=== PATIENT | female | born 1990 | race Caucasian/White ===

== ENCOUNTER → 2022-07-11 | Outpatient (CLI) | payer BC, SELFPAY ==
[2022-07-11 16:09] LABS: Absolute Lymphocyte Count 2.34 X10^3/uL (0.83-4.51); Absolute Neutrophil Count 7.4 X10^3/uL (2.0-7.7); Basophil# 0.09 X10^3/uL; Basophil% 0.8 % (0-1); Eosinophil# 0.14 X10^3/uL; Eosinophils% 1.2 % (0-5); Hemoglobin 13.6 g/dL (12.0-15.0); Lymphocyte # 2.34 X10^3/ul (0.83-4.51); Lymphocyte % 20.6 % (19-41); Mean Corp Hgb Conc 33.2 g/dL (32-36); Mean Corpuscular Volume 96.5 fL (81-99); Mean Platelet Vol. 11.4 fl (6.2-12.0); Monocyte# 1.32 X10^3/uL; Monocyte% 11.6 % (0-10); NRBC Flagged by Analyzer 0 % (0-5); Neutrophil # 7.41 X10^3/uL (2.7-7.7); Neutrophil % 65.2 % (47-70); Platelet Count 264 K/mm3 (150-450); RBC Distribution Width CV 12.2 % (11.6-14.6); RBC Distribution Width SD 43.5 fl (35.1-43.9); Red Blood Count 4.25 M/mm3 (4.2-5.4); White Blood Count 11.4 K/mm3 (4.4-11.0)
[2022-07-11 16:34] LABS: NATERA MAILED SPECIMEN
[2022-07-11 17:41] LABS: HIV - WCH Non-Reactive (Nonreactive); Hepatitis B Surface Antigen Non-Reactive (Nonreactive); Hepatitis C Antibody Non-Reactive (Nonreactive); Rubella IgG Reactive (Nonreactive); Syphilis Antibodies Non-reactive
[2022-07-14 07:06] LABS: Chlamydia By Nucleic Acid AMP Negative (Negative)
[2022-07-14 11:21] LABS: Gonococcus By Nucleic Acid AMP Negative (Negative)
[2022-07-18 21:15] LABS: HPV APTIMA, High Risk Negative (Negative)
== END | disposition home or self-care (01) ==
PROVIDERS: Referring Provider Obstetrics & Gynecology; Visit Provider Obstetrics & Gynecology
DX: O09.90 Supervision of high risk pregnancy, unspecified, unspecified trimester (principal)
CPT/HCPCS: 36415; 85025; 86703; 86762; 86780; 86803; 86850; 86900; 86901; 87086; 87340; 87491; 87591; 87624; 88175; G0145

== ENCOUNTER → 2022-11-01 | Outpatient (CLI) | payer BC, SELFPAY ==
[2022-11-01 10:20] LABS: Absolute Lymphocyte Count 2.05 X10^3/uL (0.83-4.51); Absolute Neutrophil Count 9.5 X10^3/uL (2.0-7.7); Basophil# 0.06 X10^3/uL; Basophil% 0.5 % (0-1); Eosinophil# 0.09 X10^3/uL; Eosinophils% 0.7 % (0-5); Hematocrit 33.2 % (37-47); Hemoglobin 11.3 g/dL (12.0-15.0); Lymphocyte # 2.05 X10^3/ul (0.83-4.51); Lymphocyte % 15.8 % (19-41); Mean Corpuscular Volume 97.1 fL (81-99); Monocyte# 1.08 X10^3/uL; Monocyte% 8.3 % (0-10); NRBC Flagged by Analyzer 0 % (0-5); Neutrophil # 9.48 X10^3/uL (2.7-7.7); Neutrophil % 73.3 % (47-70); Platelet Count 289 K/mm3 (150-450); RBC Distribution Width CV 12.5 % (11.6-14.6); Red Blood Count 3.42 M/mm3 (4.2-5.4); White Blood Count 12.9 K/mm3 (4.4-11.0)
[2022-11-01 10:48] LABS: Glucose Challenge Gest 1H 50g 105 mg/dL (70-140)
[2022-11-01 11:12] LABS: HIV - WCH Non-Reactive (Nonreactive); Syphilis Antibodies Non-reactive
== END | disposition home or self-care (01) ==
LOC: PAVLAB 09:56
PROVIDERS: Visit Provider Obstetrics & Gynecology
DX: O09.90 Supervision of high risk pregnancy, unspecified, unspecified trimester (principal); Z3A.00 Weeks of gestation of pregnancy not specified
CPT/HCPCS: 36415; 82950; 85025; 86703; 86780

== ENCOUNTER → 2023-01-10 | Outpatient (CLI) | payer BC, MEDICAID, SELFPAY | END | disposition home or self-care (01) | LOC: LABSPEC 10:44 | PROVIDERS: Referring Provider Obstetrics & Gynecology; Visit Provider Obstetrics & Gynecology | DX: O09.90 Supervision of high risk pregnancy, unspecified, unspecified trimester (principal); Z3A.00 Weeks of gestation of pregnancy not specified | CPT/HCPCS: 87081 ==

== ENCOUNTER → 2023-01-30 | Outpatient (CLI) | payer BC, MEDICAID, SELFPAY ==
--- NOTE | 2023-01-30 15:59 | US_ITS ---
STUDY: SECOND AND THIRD TRIMESTER OBSTETRICAL ULTRASOUND - LIMITED REASON FOR EXAM: Female, 32 years old uterine size date descrepency -- notify if RAGHAVENDRA and lt; 5 growth and lt; 10% LMP: 05/01/2022 PRIOR ULTRASOUND: None. TECHNIQUE: Transabdominal TECHNICAL QUALITY: Adequate. FINDINGS: There is a single intrauterine fetus. The fetus is in a cephalic presentation. There is demonstrated cardiac activity with a heart rate of 135 bpm. There is a normal amniotic fluid volume. The largest amniotic fluid pocket measures 3.3 cm. The amniotic fluid index (RAGHAVENDRA) is 9.5 cm. The placenta is anterior in location and is not low lying. There are Grade 2 placental changes. The cervix measures cm in length. BIOMETRY: BPD: 9.3 cm: 37 weeks, 6 days HC: 33.3 cm: 38 weeks, 0 days AC: 34.6 cm: 38 weeks, 3 days FL: 7.5 cm: 38 weeks, 1 days Age by LMP: 39 weeks, 1 days. ROBERTO by LMP: 02/05/2023. age by prior US: weeks, days. ROBERTO by prior US: . age by current US: 37 weeks, 6 days. ROBERTO by current US: 02/14/2023. Estimated weight: 3493 grams, +/- 524 grams, 53 percentile. Gender: US/OB Limited With Biometrics IMPRESSION: Living intrauterine of 37 weeks 6 days as described above. Electronically Signed: Chay Coreas MD at 22:15 EDT ,
== END | disposition home or self-care (01) ==
LOC: US 15:58
PROVIDERS: Referring Provider Obstetrics & Gynecology; Visit Provider Obstetrics & Gynecology
DX: O26.843 Uterine size-date discrepancy, third trimester (principal); Z3A.00 Weeks of gestation of pregnancy not specified
CPT/HCPCS: 76816

== ENCOUNTER 2023-02-04 04:35 | Inpatient (IN) | payer BC, MEDICAID, SELFPAY ==
[2023-02-04] VITALS (36 sets, daily range): BP systolic 100–145; BP diastolic 49–111; PULSE 52–107; RESP 12–18; TEMP 36.2–37; O2SAT 60–100; BMI 25.6
[2023-02-04 04:34] LABS: ROM Internal Control Test YES-OK TO RESULT pt. (Internal QC)
[2023-02-04 04:35] LABS: ROM Patient Test POSITIVE (Negative); Record Kit Lot#, ROM+ K1409
[2023-02-04] MEDS: LACTATED RINGERS 500 ML 999 ML IV ×2 (04:50→05:22)
[2023-02-04 05:09] LABS: Absolute Lymphocyte Count 3.07 X10^3/uL (0.83-4.51); Absolute Neutrophil Count 9.5 X10^3/uL (2.0-7.7); Basophil# 0.12 X10^3/uL; Basophil% 0.8 % (0-1); Eosinophil# 0.13 X10^3/uL; Eosinophils% 0.9 % (0-5); Hematocrit 33.7 % (37-47); Lymphocyte # 3.07 X10^3/ul (0.83-4.51); Lymphocyte % 20.9 % (19-41); Mean Corp Hgb Conc 32.6 g/dL (32-36); Mean Corpuscular Volume 91.8 fL (81-99); Mean Platelet Vol. 11.5 fl (6.2-12.0); Monocyte# 1.69 X10^3/uL; Monocyte% 11.5 % (0-10); NRBC Flagged by Analyzer 0 % (0-5); Neutrophil # 9.49 X10^3/uL (2.7-7.7); Neutrophil % 64.7 % (47-70); POSITIVE DIFFERENTIAL YES; Platelet Count 262 K/mm3 (150-450); RBC Distribution Width CV 12.6 % (11.6-14.6); RBC Distribution Width SD 42.1 fl (35.1-43.9); Red Blood Count 3.67 M/mm3 (4.2-5.4); White Blood Count 14.7 K/mm3 (4.4-11.0)
[2023-02-04 05:31] LABS: Differential Indicated SCAN CRITERIA MET
[2023-02-04] MEDS: Lactated Ringers 1,000 ML 200 ML IV (06:00)
[2023-02-04] MEDS: fentaNYL-bupivacaine (epidural) 100 ML BAG EPIDURAL (06:16)
[2023-02-04] MEDS: Cefazolin 2 GM in 0.9% Normal Saline (100mL Bag) 100 ML IV ×2 (07:38→09:02)
--- NOTE | 2023-02-04 07:52 | HP.PCM.OB_ITS ---
HPI - General General Date of Admission: 02/04/23 Date of Service: 02/03/23 HPI Narrative GURJIT VIDAL, is a 32 F 39.5 who presents for SROM of unsure time frame, possibly since . Afebrial and cat I tracing. GBS neg Maternal Data Information ROBERTO Calculator Estimated Delivery Date Method Current WG Current Estimate 02/05/23 LMP (Certain) 39w 6d Other Estimates 01/31/23 Ultrasound #1 40w 4d Final ROBERTO: 02/05/23 Final ROBERTO Source: US >20 weeks Gestational age: 39.6 weeks PFS PFS Medical History Upper respiratory infection, acute Home Medications prenat.vits,edilson,[id number] 1 tab PO DAILY 07/02/22 [History Last Taken 02/03/23 09:00] Allergy/AdvReac Type Severity Reaction Status Date / Time No Known Allergies Allergy Verified 02/04/23 04:02 Family History Brother Cancer, Onset Age: 25 Grandfather Diabetes Surgical History no surgical history Social History adopted: No household members: none current occupational status: employed current occupation: [employer] current occupational exposures/hazards: No pets and animals: Yes pets and animals: dog(s) history of recent travel: No sexually active: Yes Smoking Status: Never smoker alcohol intake: never substance use type: does not use caffeine: Yes Type: coffee Number of servings: 1 seatbelt use: always do you feel safe at home: No History 1 Elective abortions Hx Para 0 Spontaneous abortions Hx # Term Pregnancies Ectopic pregnancies Hx # Pregnancies Multiple births # of living children Visit Details Expected Delivery Route/Plan Labor Preferences- CB/BF classes: discussed labor support person: [] labor intervention preferences: [] pain management options preferred: [] cut cord/dad catch: [] : [] PP control planned: [] discussed possible routes of delivery and associated risks: [] special requests: [] Plans Covid status: discussed Flu vaccine: discussed Tdap vaccine: given Rhogam: na LARC form signed: declined movement and labor precautions reviewed. Problem list reviewed and updated with the most current plan of care details and appropriate orders placed. Relevant counseling for the gestational age provided. Continue routine care and follow up unless otherwise noted in visit notes/problem list details OB Flowsheet Initial Weight: Not Recorded Date -?-?-?-?-?-?-?-?-?-?-?-?- EGA Weight BP Urine Prot -?-?-?-?-?-?-?-?-?-?-?-?- Glucose FHR FuHt Pres Dilation -?-?-?-?-?-?-?-?-?-?-?-?- Effaced St Visit Note 07/11/22 -?-?-?-?-?-?-?-?-?-?-?-?- 10w 1d 127 lb 127/76 -?-?-?-?-?-?-?-?-?-?-?-?- 185 -?-?-?-?-?-?-?-?-?-?-?-?- SM- CRL 3.6 cm c ons with LMP 08/09/22 -?-?-?-?-?-?-?-?-?-?-?-?- 14w 2d 126 lb 2 oz 114/64 Nega tive -?-?-?-?-?-?-?-?-?-?-?-?- Negative 155 -?-?-?-?-?-?-?-?-?-?-?-?- JV- no lof, vagi nal bleeding, or cramping. anatomy scan ordered. normal NIPT> does not know gender though! 09/06/22 -?-?-?-?-?-?-?-?-?-?-?-?- 18w 2d 129 lb 2 oz 130/72 Nega tive -?-?-?-?-?-?-?-?-?-?-?-?- Negative 150 -?-?-?-?-?-?-?-?-?-?-?-?- JV- anatomy scan is scheduled for 09/10. got poison yu this weekend. remedies discussed. 10/04/22 -?-?-?-?-?-?-?-?-?-?-?-?- 22w 2d 133 lb 132/74 Negative -?-?-?-?-?-?-?-?-?-?-?-?- Negative 145 22 -?-?-?-?-?-?-?-?-?-?-?-?- SM- no vb lof go od fm no regualr ctx 11/01/22 -?-?-?-?-?-?-?-?-?-?-?-?- 26w 2d 141 lb 6 oz 127/75 Nega tive -?-?-?-?-?-?-?-?-?-?-?-?- Negative 150 26 -?-?-?-?-?-?-?-?-?-?-?-?- KW-+fm. no lof/v b/cramping. labs today-pending. LARC done 12/02/22 -?-?-?-?-?-?-?-?-?--?-?-?- 30w 5d 143 lb 111/61 Negative -?-?-?-?-?-?-?-?-?-?-?-?- Negative 140 31 -?-?-?-?-?-?-?-?-?-?-?-?- SM- no vb lof go od fm no regular ctx 12/13/22 -?-?-?-?-?-?-?-?-?-?-?-?- 32w 2d 146 lb 103/56 Negative -?-?-?-?-?-?-?-?-?-?-?-?- Negative 157 30 -?-?-?-?-?-?-?-?-?-?-?-?- JV- no lof, vagi nal bleeding, or dec fm. 12/27/22 -?-?-?-?-?-?-?-?-?-?-?-?- 34w 2d 146 lb 8 oz 117/68 Nega tive -?-?-?-?-?-?-?-?-?-?-?-?- Negative 150 34 Cephalic -?-?-?-?-?-?-?-?-?-?-?-?- JV- no lof, vagi nal bleeding, or dec fm. has some epigastric discomfort. remedies discussed. 01/10/23 -?-?-?-?-?-?-?-?-?-?-?-?- 36w 2d 147 lb 2 oz 120/62 Trac e -?-?-?-?-?-?-?-?-?-?-?-?- Negative 155 35 -?-?-?-?-?-?-?-?-?-?-?-?- kw-no vb/lof/ctx . good fm. GBS collected declines VE today. kw-no vb/lof/ctx. good fm. G BS collected declines VE today. shingles rash on leg. medication ordered per uptodate. 01/16/23 -?-?-?-?-?-?-?-?-?-?-?-?- 37w 1d 153 lb 6 oz 110/70 Nega tive -?-?-?-?-?-?-?-?-?-?-?-?- Negative 140 37 Cephalic -?-?-?-?-?-?-?-?-?-?-?-?- SM- no vb lof go od fm n oregular ctx discussed shingles appearing rash, also recommended PCP evaluation 01/24/23 -?-?-?-?-?-?-?-?-?-?-?-?- 38w 2d 147 lb 8 oz 123/76 Nega tive -?-?-?--?-?-?-?-?-?-?-?-?- Negative 150 37 Cephalic 1 -?-?-?-?-?-?-?-?-?-?-?-?- 90 -1 JV- no lof , vaginal bleeding, or dec fm. no complaints. labor precautions discussed 01/30/23 -?-?-?-?-?-?-?-?-?-?-?-?- 39w 1d 151 lb 6 oz 125/76 Nega tive -?-?-?-?-?-?-?-?-?-?-?-?- Negative 140 35 Cephalic 1 .5 -?-?-?-?-?-?-?--?-?-?-?-?- SM- no vb lof co decreased fm no regular ctx, low FH ordered NST FHR Rate Baby A Baseline: 130 Variability:: Moderate Accelerations:: 15 x 15 Decelerations:: None NST Reactive:: Yes FHR Category:: Category I Uterine Activity:: 2-3 minutes ROS Constitutional Constitutional: Denies change in weight, fatigue, fever(s), headache(s), poor appetite or weakness Eyes Eyes: Denies blurry vision, change in vision, floaters, seeing flashes or spots in vision ENT HEENT: Denies dizziness, headache(s), loss taste/smell or sore throat Cardiovascular Cardiovascular: Denies chest pain, dizziness, dyspnea, irregular heart rhythm, lightheadedness, palpitations or rapid heart rate Respiratory/Chest Respiratory/Chest: Denies change in mental status, chest tightness, cough, dyspnea or breast pain Gastrointestinal Gastrointestinal: Denies anorexia, chewing difficulty, constipation, diarrhea or weight changes Genitourinary Genitourinary: Denies difficulty urinating, dysuria, flank pain, genital pain, urinary frequency or urinary urgency Musculoskeletal Musculoskeletal: Denies back pain, difficulty walking, extremity pain, joint pain, muscle cramps or muscle weakness Integumentary Integumentary: Denies lesions or unusual bruising Neurologic Neurologic: Denies abnormal movements, abnormal speech, dizziness, numbness, seizure-like activity, syncope or weakness Psychiatric Psychiatric: Denies behavioral changes, change in appetite, confusion, depression, homicidal ideation, suicidal ideation or suicidal thoughts Endocrine Endocrinology: Denies excessive sweating, polydipsia or polyuria Hematologic/Lymphatic Hematologic/Lymphatic: Denies anemia Allergic/Immunologic Allergic/Immunologic: Denies itchy eyes, lip swelling, throat swelling, tongue swelling or wheezing Vital Signs Vital Signs Vital Signs: 02/04/23 03:57 02/04/23 03:57 02/04/23 03:58 Temperature Temperature Source Pulse Rate 81 Blood Pressure 136/87 H BP Systolic 136 BP Diastolic 87 Pulse Ox 100 02/04/23 03:58 02/04/23 03:55 02/04/23 03:55 Temperature 98.6 F Temperature Source Temporal Pulse Rate 58 L Blood Pressure BP Systolic BP Diastolic Pulse Ox 02/04/23 06:06 02/04/23 06:06 02/04/23 06:07 Temperature Temperature Source Pulse Rate 58 L 107 H Blood Pressure 134/69 H BP Systolic 134 BP Diastolic 69 Pulse Ox 02/04/23 06:07 02/04/23 06:12 02/04/23 06:12 Temperature Temperature Source Pulse Rate 78 Blood Pressure 145/77 H BP Systolic 145 BP Diastolic 77 Pulse Ox 84 02/04/23 06:12 02/04/23 06:17 02/04/23 06:17 Temperature Temperature Source Pulse Rate 67 Blood Pressure 130/81 H BP Systolic 130 BP Diastolic 81 Pulse Ox 100 02/04/23 06:17 02/04/23 06:17 02/04/23 06:22 Temperature Temperature Source Pulse Rate 60 Blood Pressure 112/70 BP Systolic 112 BP Diastolic 70 Pulse Ox 100 02/04/23 06:22 02/04/23 06:22 02/04/23 06:22 Temperature Temperature Source Pulse Rate 71 82 Blood Pressure BP Systolic BP Diastolic Pulse Ox 100 02/04/23 06:24 02/04/23 06:24 02/04/23 06:26 Temperature Temperature Source Pulse Rate 83 Blood Pressure 113/72 111/73 BP Systolic 113 111 BP Diastolic 72 73 Pulse Ox 02/04/23 06:26 02/04/23 06:27 02/04/23 06:27 Temperature Temperature Source Pulse Rate 80 79 Blood Pressure BP Systolic BP Diastolic Pulse Ox 99 02/04/23 06:31 02/04/23 06:31 02/04/23 06:33 Temperature Temperature Source Pulse Rate 98 83 Blood Pressure 108/71 BP Systolic 108 BP Diastolic 71 Pulse Ox 02/04/23 06:33 02/04/23 06:37 02/04/23 06:37 Temperature Temperature Source Pulse Rate 68 Blood Pressure 123/69 H BP Systolic 123 BP Diastolic 69 Pulse Ox 94 02/04/23 06:37 02/04/23 06:42 02/04/23 06:42 Temperature Temperature Source Pulse Rate 71 Blood Pressure BP Systolic BP Diastolic Pulse Ox 100 78 02/04/23 06:43 02/04/23 06:43 02/04/23 06:47 Temperature Temperature Source Pulse Rate 82 Blood Pressure 125/73 H 121/66 H BP Systolic 125 121 BP Diastolic 73 66 Pulse Ox 02/04/23 06:47 02/04/23 07:15 02/04/23 07:15 Temperature Temperature Source Pulse Rate 83 67 Blood Pressure 124/73 H BP Systolic 124 BP Diastolic 73 Pulse Ox 02/04/23 07:15 02/04/23 07:14 02/04/23 07:14 Temperature 97.5 F L Temperature Source Temporal Pulse Rate Blood Pressure BP Systolic BP Diastolic Pulse Ox 99 02/04/23 07:27 02/04/23 07:27 Temperature Temperature Source Pulse Rate 68 Blood Pressure BP Systolic BP Diastolic Pulse Ox 98 Weight Weight: 149 lb 4.047 oz Body Mass Index (BMI) 25.6 Physical Exam Const alert, oriented x3 and no apparent distress General Appearance: cooperative Orientation / Consciousness: awake HEENT normocephalic Neck full ROM Lymph Lymphatic: no lymphadenopathy noted Chest inspection of chest normal Resp normal respiratory effort and normal air movement Effort and Inspection: able to speak in complete sentences and symmetric chest movement GI soft to palpation and non-tender Inspection: gravid Palpation: soft; Negative for tender external exam normal Back/Spine normal to inspection Extremity normal to inspection and full ROM Skin no rashes or lesions noted Psych mental status grossly normal Appearance: grossly normal Speech: normal speech Labs Labs Labs: 2 Blood Type O POSITIVE Antibody Screen NEGATIVE Hct 33.7 % (37-47) L Hgb 11.0 g/dL (12.0-15.0) L Obstetrics Ultrasound Syphilis Total Ab Non-reactive Rubella IgG Antibody Reactive (Nonreactive) Hep Bs Antigen Non-Reactive (Nonreactive) Hepatitis C Antibody Non-Reactive (Nonreactive) Chlamydia DNA (TAMMY) Negative (Negative) N.gonorrhoeae DNA (TAMMY) Negative (Negative) HIV 1&2 Antibody Non-Reactive (Nonreactive) Glucose 1 Hr 50 gm 105 mg/dL (70-140) Assessment & Plan (1) Decreased movements in third trimester: PLAN: Patient presents IAL, plan expectant management for , pitocin/AROM PRN if needed. Pain management: plans epidural. GBS neg. Management of any complications: none I have reviewed the [facility] and made any clinically relevant updates. (2) Uterine size-date discrepancy, third trimester: COMMENT: growth us ordered (3) Shingles rash: COMMENT: starting valtex 01/24, already scabbed over and located on right inner knee. (4) Supervision of high risk , antepartum: COMMENT: PRR ROBERTO 02/05/23 girl Sergo Crump (erlin-2) (5) : QUALIFIERS: Weeks of gestation: 39 weeks Qualified Code(s): Z3A.39 - 39 weeks gestation of COMMENT: Neg GBS NIPT low risk, declined afp and carrier screening normal anatomy scan, nl GCT (6) Active labor at term: Charges/Coding Multi Select Codes Urinary/Genital Urinary/Genital CPT Codes: No Charge
[2023-02-04 08:20] LABS: Syphilis Antibodies Non-reactive
[2023-02-04] MEDS: Methylergonovine 0.2 MG/ML Ampul IM (09:10)
--- NOTE | 2023-02-04 09:25 | EX.PCM.OBRPT ---
Assessment & Plan (1) Active labor at term: (2) Decreased movements in third trimester: (3) Uterine size-date discrepancy, third trimester: COMMENT: growth us ordered (4) Supervision of high risk , antepartum: COMMENT: PRR ROBERTO 02/05/23 radha Crump (erlin-2) (5) : QUALIFIERS: Weeks of gestation: 39 weeks Qualified Code(s): Z3A.39 - 39 weeks gestation of COMMENT: Neg GBS NIPT low risk, declined afp and carrier screening normal anatomy scan, nl GCT Maternal Data Information ROBERTO Calculator Estimated Delivery Date Method Current WG Current Estimate 02/05/23 LMP (Certain) 39w 6d Other Estimates 01/31/23 Ultrasound #1 40w 4d Final ROBERTO Source: LMP Gestational age: 39 weeks 6 days Doctor Who Attended Delivery: Rosamaria Mead Details Operative Information Date of Procedure: 02/04/23 Pre-Operative Diagnosis: 32 y/o @ 39 weeks 6 days, srom, decels, terminal bradycardia Post-Operative Diagnosis: 32 y/o @ 39 weeks 6 days, srom, decels, terminal bradycardia Classification: Stat Procedure Type: low transverse coffee brewer #1: Divine Badillo Type of Anesthesia: Epidural Anesthesiologist: Shadi Copeland Antibiotic Given: Ancef 2 grams IV x1 (given x 2 ) Estimated Blood Loss: 300cc Time of Delivery: 09:04 Findings Description of Procedure: The patient was brought to the operating room for an OB ERT at approximately 730 this morning due to heart rate down into the 40s and 50s for several minutes. At that time the heart rate resolved and was back up to the 120s 130s with moderate variability and accelerations. She was brought back to the labor room and allowed to labor further. Cervix was noted to be 9 cm at this time. At approximately 855 and second OB ERT was called and the patient was brought back to the operating room. Cervix was still at 9 cm however we attempted to push in the patient brought the station down to a +1+2. However recoiled between pushing and the heart rate dropped down in between each contraction to the 90s. After the third push the heart rate dropped down to the 70s and did not return and the decision was made to proceed with section Epidural anesthesia was found to be adequate and Sharp catheter was found to be placed. The patient was placed in the dorsal supine position with leftward tilt. Patient was prepped and draped in the normal sterile fashion. Pfannenstiel skin incision was made with the scalpel and carried through to the underlying layer of fascia with the scalpel. Fascia was nicked in the midline and the incision extended laterally. The rectus bellies were dissected off superiorly and inferiorly with out complication both sharply and bluntly. The peritoneum was entered digitally. The incision was stretched and a low transverse uterine incision was made with the scalpel. The infant's head was delivered atraumatically followed by the anterior and posterior shoulders without complication the rest of the delivered. The cord was clamped and cut and the infant was handed off to awaiting nurse. The placenta was delivered spontaneously immediately following and was noted to be intact and have a three-vessel cord. The uterus was exteriorized cleared of all clots and debris, and the incision was closed in a double layer closure using #1 Monocryl. The ovaries and fallopian tubes were noted to be within normal limits. The uterus was returned to the maternal abdomen and gutters were cleared of all clots and debris. The peritoneum was closed with 3-0 Monocryl in a running fashion. Fascia was closed with 0 PDS in a running fashion. Subcutaneous tissue was copiously irrigated and the skin was closed with 3-0 Monocryl in a subcuticular fashion. Mepilex dressing was applied without complication. Patient was taken to recovery in stable condition. It was discussed with the patient that based on the clinical information obtained during this encounter, combined with her history, at this time I would recommend or repeat section for future deliveries if further pregnancies are desired. Presentation: Positive for Vertex Amniotic Membrane Rupture Type: Spontaneous Time of Membrane Ruptured: 3am (at home) Amniotic Fluid Description: Clear Placental Delivery Description: Manual Removal Placenta Disposition: [facility] Cord Vessel Description: 3 Vessels Cord Entanglement: Around neck x 1, loose Cord Gases: ABG and VBG Infant A Gender: Female (1 minute): 9 (5 minute): 9 Delayed Cord Clamping: Yes Complications Risks of Surgery Discussed w/Patient: Anesthesia Risks, Infection and Injury to surrounding structure(s) including bowel and bladder Complications: none Multi Select Codes Urinary/Genital Urinary/Genital CPT Codes: 35744 Delivery [facility]
--- NOTE | 2023-02-04 09:36 | DCINST_ITS ---
Discharge Instructions Diet Discharge Diet: No restrictions Activity Discharge Activity: May Not Drive (for 2 weeks or while taking narcotic pain medications.), May Shower and May Take a Tub Bath (in 7 days.) May resume sexual activity in: 4-6 weeks Weight Bearing Status: Full weight bearing Lifting Restrictions: 20 pounds Dressing / Incision Call your doctor if your incision/area has: Continuous Slow Oozing, Sudden Increased Bleeding, Increased Pain/ Swelling, Increased Redness and Foul Smelling Discharge Call your doctor if you observe: Fever of 101 or Higher and Using more than 1 pad per hour Suture Line Care: Avoid Pulling/Pushing and Avoid Pinching/Bending Cleanse incision/area with: Soap & Water and Keep Dressing Clean & Dry Follow Up Care Please Follow Up With: Queenie Langston DO When: Call [phone] to make an appointment for an incision check in 1-2 weeks. Test Results: Test results from this visit will be discussed in further detail at your follow- up appointment, if applicable. Discharge Plan Admission Admit Date/Time: 02/04/23 04:35 Attending Provider: Queenie Langston Primary Care Provider: Care Physician,Fariba Primary Discharge Orders/Prescriptions Prescriptions: No Action prenat.vits,edilson,vih-gurp-zyjit Tablet 1 tab PO DAILY Referrals / Follow Up: Care Physician,No Primary [Primary Care Provider] -
[2023-02-04] MEDS: Oxytocin 15 Units/NS 250ml 15 UNITS/250 ML IV.SOLN 83 UNITS IV (09:54)
[2023-02-04] MEDS: Ketorolac 30 MG/ML Syringe IV ×3 (10:00→22:06)
[2023-02-04] MEDS: Acetaminophen 500 MG Tablet 1000 MG PO ×3 (10:09→22:07)
[2023-02-04] MEDS: Ondansetron 4 MG/2 ML Vial IV (12:48)
[2023-02-04] MEDS: Lactated Ringers 1,000 ML 100 ML IV (13:09)
[2023-02-04] MEDS: 0.9% Saline Lock 10 ML Syringe IV (17:43)
[2023-02-05] MEDS: Acetaminophen 500 MG Tablet 1000 MG PO ×4 (04:05→22:57)
[2023-02-05] MEDS: Ketorolac 30 MG/ML Syringe IV (04:05)
[2023-02-05 04:07] VITALS: BP 85/55; PULSE 67; RESP 16; TEMP 36.6; O2SAT 99
[2023-02-05 04:39] LABS: Hematocrit 33.6 % (37-47); Hemoglobin 10.7 g/dL (12.0-15.0); Mean Corp Hgb Conc 31.8 g/dL (32-36); Mean Corpuscular Hgb 29.7 pg (27.0-32.0); Mean Corpuscular Volume 93.3 fL (81-99); Mean Platelet Vol. 11.1 fl (6.2-12.0); Platelet Count 258 K/mm3 (150-450); RBC Distribution Width CV 12.9 % (11.6-14.6); RBC Distribution Width SD 44.4 fl (35.1-43.9); White Blood Count 19.4 K/mm3 (4.4-11.0)
--- NOTE | 2023-02-05 07:51 | PCM.PN.OB ---
Subjective Subjective Patient doing well without complaints. Tolerating PO. Ambulating and voiding without difficulty. Feeding well. Denies chest pain, shortness of breath, calf pain/swelling, fevers, chills, lightheadedness. Objective Data Objective Data Vital Signs: Vital Signs Temp Pulse Resp BP Pulse Ox O2 Del Method 97.8 F 67 16 85/55 L 99 Room Air 02/05/23 04:07 02/05/23 04:07 02/05/23 04:07 02/05/23 04:07 02/05/23 04:07 02/05/23 04:07 Oxygen Delivery Method Room Air Weight: 149 lb 4.047 oz Body Mass Index (BMI) 25.6 Intake & Output: Intake and Output for Last 24 Hours 02/03/23 02/04/23 02/05/23 23:59 23:59 23:59 Intake Total 2546.67 / 2546.67 Output Total 1250 / 1250 650 / 650 Balance 1296.67 / 1296.67 -650 / -650 Lab / Micro Data 02/05/23 04:30 Labs: Laboratory Results - last 24 hr 02/04/23 04:50: Syphilis Total Ab Non-reactive 02/05/23 04:30: WBC 19.4 H, RBC 3.60 L, Hgb 10.7 L, Hct 33.6 L, MCV 93.3, MCH 29.7, MCHC 31.8 L, RDW Std Deviation 44.4 H, RDW Coeff of Dedra 12.9, Plt Count 258, MPV 11.1 Physical Exam Const alert and oriented x3 HEENT normocephalic Eyes PERRL Neck full ROM Resp normal respiratory effort GI soft to palpation GI Narrative: FF below U. Dressing dry and intact Palpation: tender other (appropriately) Assessment & Plan (1) delivery delivered: COMMENT: 02/04/23 LTCS JACKSON Trotter. distress PLAN: Plan s/p LTCS PPD # 1 1. routine post care 2. breast feeding- support given 3. rh positive 4. rubella immune 5. plans home today
[2023-02-05 10:00] VITALS: BP 108/64; PULSE 67; RESP 16; TEMP 36.9
[2023-02-05] MEDS: Ibuprofen 600 MG Tablet PO ×3 (10:35→22:57)
[2023-02-05] MEDS: Senna/Docusate Sodium 1 Tablet PO (10:36)
[2023-02-05 13:38] LABS: Pathologist Review Reviewed
[2023-02-05 14:00] VITALS: BP 109/61; PULSE 77; RESP 16; TEMP 36.8
[2023-02-05 19:40] VITALS: BP 96/58; PULSE 66; RESP 16; TEMP 36.7
[2023-02-06 01:50] VITALS: BP 101/62; PULSE 78; RESP 16; TEMP 36.7
[2023-02-06] MEDS: Acetaminophen 500 MG Tablet 1000 MG PO ×2 (05:20→11:03)
[2023-02-06] MEDS: Ibuprofen 600 MG Tablet PO ×2 (05:20→11:02)
--- NOTE | 2023-02-06 08:04 | PCM.PN.OB ---
Subjective Subjective Patient doing well without complaints. Tolerating PO. Ambulating and voiding without difficulty. feeding well. Denies chest pain, shortness of breath, calf pain/swelling, fevers, chills, lightheadedness. Objective Data Objective Data Vital Signs: Vital Signs Temp Pulse Resp BP Pulse Ox O2 Del Method 98.1 F 78 16 101/62 99 Room Air 02/06/23 01:50 02/06/23 01:50 02/06/23 01:50 02/06/23 01:50 02/05/23 04:07 02/05/23 04:07 Oxygen Delivery Method Room Air Weight: 149 lb 4.047 oz Body Mass Index (BMI) 25.6 Intake & Output: Intake and Output for Last 24 Hours 02/04/23 02/05/23 02/06/23 23:59 23:59 23:59 Intake Total 2546.67 / 2546.67 Output Total 1250 / 1250 650 / 650 Balance 1296.67 / 1296.67 -650 / -650 Lab / Micro Data 02/05/23 04:30 Labs: Laboratory Results - last 24 hr 02/04/23 04:50: Diff Path Review Reviewed ROS Constitutional Constitutional: Reports systems reviewed and no addt'l complaints, except as documented Cardiovascular Cardiovascular: Reports systems reviewed and no addt'l complaints, except as documented Respiratory/Chest Respiratory/Chest: Reports systems reviewed and no addt'l complaints, except as documented Gastrointestinal Gastrointestinal: Reports systems reviewed and no addt'l complaints, except as documented Physical Exam Const alert, oriented x3 and no apparent distress HEENT Head and Scalp: atraumatic Resp normal respiratory effort GI soft to palpation and non-tender Inspection: incision intact, healing well and drainage (none) Bimanual Exam - Vag & Uterus: uterus non-tender Uterus Palpation: uterus fundus firm (below Umbilicus) Assessment & Plan (1) delivery delivered: COMMENT: 02/04/23 LTCS JACKSON Trotter. distress PLAN: Plan s/p LT PPD # 2 1. routine post care 2. breast feeding- support given 3. rh positive 4. rubella immune
[2023-02-06 08:50] VITALS: BP 121/58; PULSE 70; RESP 18; TEMP 36.6; O2SAT 97
[2023-02-06] MEDS: Senna/Docusate Sodium 1 Tablet PO (11:02)
== END 2023-02-06 11:50 | disposition home or self-care (01) | DRG 788 ==
LOC: WPOUT 04:37 → WP 04:37
PROVIDERS: Registered Nurse; Admitting Provider Obstetrics & Gynecology; Referring Provider Obstetrics & Gynecology; Visit Provider Obstetrics & Gynecology
DX: O76 Abnormality in fetal heart rate and rhythm complicating labor and delivery (principal); O26.843 Uterine size-date discrepancy, third trimester; R00.1 Bradycardia, unspecified; O34.219 Maternal care for unspecified type scar from previous cesarean delivery; O36.8130 Decreased fetal movements, third trimester, not applicable or unspecified; Z3A.39 39 weeks gestation of pregnancy; Z37.0 Single live birth; O99.892 Other specified diseases and conditions complicating childbirth
CPT/HCPCS: 59025; 59050; 84112; 85025; 85027; 86780; 86850; 86900; 86901; 99221; J7120; A4216; G0378; J2405